=== PATIENT | male | born 1955 | race Caucasian/White ===

== ENCOUNTER 2021-03-09 13:06 | Emergency (ER) | payer OTHER ==
[~2021-03-09] VITALS: Ht 185.4 cm; Wt 81.6 kg
[2021-03-09 13:10] VITALS: BP 121/72
== END 2021-03-09 15:26 ==
LOC: ER 14:58
DX: Z20.822 Contact with and (suspected) exposure to COVID-19 (principal); Z02.89 Encounter for other administrative examinations; F15.10 Other stimulant abuse, uncomplicated
CPT/HCPCS: 87426; 99283; C9803